=== PATIENT | male | born 1950 | race Caucasian/White ===

== ENCOUNTER → 2018-05-13 08:13 | Outpatient (CLI) | payer MEDICARE, MEDICAID, SELFPAY ==
--- NOTE | 2018-05-13 | DI.US.S_ITS ---
PROCEDURE: US ABD AORTA ANEURYSM SCREEN INDICATIONS: ABDOMINAL AORTIC ANEURYSM SCREENING TECHNIQUE: Real time scanning was performed of the aorta and iliac arteries, with image documentation. COMPARISON: None. FINDINGS: Aorta: Proximal aortic diameter measures 2.7 cm. Mid-aorta measures 2.3 cm. Distal aortic diameter is 1.9 cm. Iliac arteries: Right common iliac artery measures 1.2 cm. Left common iliac artery measures 1.2 cm. IMPRESSION: No abdominal aortic or proximal common iliac artery aneurysm. Dictated by: Billy Ballard [facility] Interpreted: Lanette Musa MD on 05/13/2018 at 9:53 Approved by: Lanette Musa MD, PhD on 05/13/2018 at 13:21
== END ==
PROVIDERS: PCP Internal Medicine; Visit Provider Internal Medicine
DX: Z13.6 Encounter for screening for cardiovascular disorders (principal)
CPT/HCPCS: 76706

== ENCOUNTER → 2019-05-19 09:56 | Outpatient (CLI) | payer MEDICARE, MEDICAID, SELFPAY ==
[2019-05-19 11:04] LABS: Alanine Aminotransferase 33 IU/L (21-72); Albumin 4.2 g/dL (3.5-5.0); Albumin Globulin Ratio 1.2 (1.0-2.8); Alkaline Phosphatase 69 U/L (38-126); Aspartate Aminotransferase 25 IU/L (17-59); BUN Creatinine Ratio 18.9 (6-22); Bilirubin Total 0.6 mg/dL (0.2-1.3); Blood Urea Nitrogen 17 mg/dL (9-20); Calcium 9.6 mg/dL (8.4-10.2); Carbon Dioxide 29 mmol/L (22-32); Chloride 100 mmol/L (98-107); Cholesterol 234 mg/dL (140-199); Estimated Glomerular Filt Rate > 60.0 mL/min (>60); Globulin 3.5 g/dL (1.7-4.1); Glucose 88 mg/dL (80-110); HDL Cholesterol 67 mg/dL (40-60); HEMOLYSIS < 15 (0-50); LDL Cholesterol Calculated 129 mg/dL (<100); Potassium 4.1 mmol/L (3.4-5.1); Sodium 136 mmol/L (137-145); Total Protein 7.7 g/dL (6.3-8.2); Triglycerides 188 mg/dL (35-150)
== END ==
PROVIDERS: PCP Internal Medicine; Visit Provider Internal Medicine
DX: E78.2 Mixed hyperlipidemia (principal); K21.9 Gastro-esophageal reflux disease without esophagitis
CPT/HCPCS: 36415; 80053; 80061

== ENCOUNTER → 2020-10-31 09:37 | Outpatient (CLI) | payer MEDICARE, MEDICAID, SELFPAY ==
[2020-10-31 10:23] LABS: Add Manual Diff / Slide Review NO; Basophils Absolute Auto 0 /uL (0-100); Basophils Percent Auto 0.4 % (0-2); Eosinophils Absolute Auto 100 /uL (0-450); Eosinophils Percent Auto 2.2 % (2-4); Hematocrit 41.6 % (41-53); Hemoglobin 14.7 g/dL (13.5-17.5); Lymphocytes Absolute Auto 1600 /uL (1100-4500); Lymphocytes Percent Auto 28.9 % (25-40); Mean Corpuscular HGB Conc 35.3 % (30-36); Mean Corpuscular Hemoglobin 34.2 PG (26-34); Mean Corpuscular Volume 96.8 fL (80-100); Monocytes Absolute Auto 600 /uL (0-900); Monocytes Percent Auto 11.7 % (3-14); Neutrophils Absolute Auto 3100 /uL (1500-7000); Neutrophils Percent Auto 56.8 % (50-75); Platelet Count 293 X10^3/uL (150-400); Red Cell Distribution Width 12.9 % (11.6-14.8); White Blood Cell Count 5.4 X10^3/uL (4.5-11.0)
[2020-10-31 10:55] LABS: Alanine Aminotransferase 34 IU/L (<50); Albumin Globulin Ratio 1.3 (1.0-2.8); Alkaline Phosphatase 56 U/L (38-126); Aspartate Aminotransferase 28 IU/L (17-59); BUN Creatinine Ratio 14.8 (6-22); Bilirubin Total 0.5 mg/dL (0.2-1.3); Blood Urea Nitrogen 13 mg/dL (9-20); Calcium 9.2 mg/dL (8.4-10.2); Carbon Dioxide 29 mmol/L (22-32); Chloride 101 mmol/L (98-107); Cholesterol 202 mg/dL (140-199); Estimated Glomerular Filt Rate > 60.0 mL/min (>60); Globulin 3.2 g/dL (1.7-4.1); Glucose 104 mg/dL (80-110); HDL Cholesterol 65 mg/dL (40-60); HEMOLYSIS < 15 (0-50); LDL Cholesterol Calculated 108 mg/dL (<100); Potassium 4.4 mmol/L (3.4-5.1); Sodium 135 mmol/L (137-145); Total Protein 7.2 g/dL (6.3-8.2); Triglycerides 143 mg/dL (35-150)
[2020-10-31 11:24] LABS: Prostate Specific Antigen Scrn 1.01 ng/mL (0.1-4.0)
== END ==
PROVIDERS: PCP Internal Medicine; Referring Provider Internal Medicine; Visit Provider Internal Medicine
DX: Z00.00 Encounter for general adult medical examination without abnormal findings (principal); E78.2 Mixed hyperlipidemia; Z12.5 Encounter for screening for malignant neoplasm of prostate; K21.9 Gastro-esophageal reflux disease without esophagitis
CPT/HCPCS: 36415; 80053; 80061; 85025; G0103

== ENCOUNTER → 2022-01-11 06:31 | Outpatient (CLI) | payer MEDICARE, MEDICAID, SELFPAY ==
--- NOTE | 2022-01-11 06:35 | DI.ECHO.S_ITS ---
[place] [facility]---------+ [facility] +---------+ : : [address] : : : : [id number] : : : : Phone: [phone]+ Echocardiogram Report + + :Name: AYUSH NIELSEN Study Date: 01/11/2022 Height: 67 in : :[facility] ReadingLocation: Weight: 175 lb : : Gender: Male BSA: 1.9 m2 : :: 1950 Age: 71 yrs BP: 137/94 mmHg: :Reason For Study: Murmur : :Ordering Physician: ZAHIRA, : :CONCHA Performed By: Anuj Bella : :Referring: CONCHA RODRIGES : + + Interpretation Summary 1) Normal left ventricular thickness, size, and systolic function (EF 55-60%). 2) There are no obvious focal wall motion abnormalities noted but poor endocardial definition reduces the sensitivity for the detection of such. 3) Normal right ventricular size and function. 4) No significant valvular abnormalities. 5) Compared to the Echo done 12/10/2016, no significant change. Procedure: A two-dimensional transthoracic echocardiogram with color flow and Doppler was performed. The study quality was technically adequate. Comparison is made with the echocardiogram of 12/10/2016. Left Ventricle: The left ventricle is normal in size and wall thickness. Left ventricular systolic function is normal. The ejection fraction is estimated to be 55-60%. There are no obvious focal wall motion abnormalities noted but poor endocardial definition reduces the sensitivity for the detection of such. Diastolic parameters suggest probable normal left ventricular diastolic function and normal filling pressures. Right Ventricle: The right ventricle is normal in size and function. Atria: Both atria are normal in size. The interatrial septum grossly appears intact with no obvious evidence for an atrial septal defect. Mitral Valve: The mitral valve is normal in structure and function. There is trace mitral regurgitation. Aortic Valve: The aortic valve is normal in structure and function. There is no aortic valve stenosis. There is trace aortic regurgitation. Tricuspid Valve: The tricuspid valve is normal in structure and function. There is mild tricuspid regurgitation. The right ventricular systolic pressure is estimated to be at least 30 mmHg based on an estimated right atrial pressure of 3 mm Hg. Pulmonic Valve: The pulmonic valve is normal in structure and function. There is mild pulmonic regurgitation. Great Vessels: The aortic root is normal size. The dimensions of the ascending aorta are normal. The IVC is of normal diameter and collapses greater than 50% with a sniff. This suggests a low right atrial pressure of 3 mm Hg. Pericardium/ Pleura There is no pericardial effusion. There is no pleural effusion. MMode/2D Measurements & Calculations LVIDd: 4.8 cm LVOT diam: 2.1 cm LVIDs: 3.0 cm Ao root diam: 2.9 cm FS: 37.5 % asc Aorta Diam: 3.1 cm IVSd: 0.80 cm LVPWd: 1.0 cm LV bates. diameter/BSA (cm/m^2): 2.5 LV sys. diameter/BSA (cm/m^2): 1.6 LA dimension: 2.9 cm RA long axis: 5.0 cm LA A2 area: 12.9 cm2 LA A4 area: 14.1 cm2 LA length (vol): 4.6 cm LA vol: 33.6 ml LA vol index: 17.6 ml/m2 TAPSE_phl: 1.9 cm Doppler Measurements & Calculations Ao V2 max: 81.8 cm/sec LVOT Max Pranav: 77.7 cm/sec Ao V2 mean: 64.0 cm/sec LV V1 max P.4 mmHg Ao max P.0 mmHg LV V1 VTI: 15.1 cm Ao mean P.0 mmHg MARY(I,D): 3.1 cm2 Ao V2 VTI: 16.9 cm MARY(V,D): 3.3 cm2 sev ratio: 0.89 MARY indexed to BSA (cm^2/m^2): 1.6 MV E max pranav: 74.1 cm/sec TR max pranav: 259.0 cm/sec MV A max pranav: 86.1 cm/sec TR max P.8 mmHg MV E/A: 0.86 Med Peak E' Pranav: 6.2 cm/sec E/E' med: 12.0 Lat Peak E' Pranav: 8.3 cm/sec E/E' lat: 8.9 E/e' average: 10.4 MV dec time: 0.24 sec SV(LVOT): 52.3 ml AV VR_phl: 0.95 MARY(VTI)/BSA_phl: 1.6 MV P1/2t-pr_phl: 72.0 msec Reading Physician:12:45 PM
== END ==
PROVIDERS: PCP Student in an Organized Health Care Education/Training Program; Referring Provider Student in an Organized Health Care Education/Training Program; Visit Provider Student in an Organized Health Care Education/Training Program
DX: R01.1 Cardiac murmur, unspecified (principal)
CPT/HCPCS: 93306

== ENCOUNTER 2022-11-05 16:06 | Emergency (ER) | payer MEDICARE, MEDICAID, SELFPAY ==
[2022-11-05] VITALS (10 sets, daily range): BP systolic 127–183; BP diastolic 91–108; PULSE 85–116; RESP 16–25; TEMP 36.6; O2SAT 94–99; BMI 25.0
--- NOTE | 2022-11-05 16:14 | DI.RAD.S_ITS ---
PROCEDURE: XR CHEST 1V INDICATIONS: chest pain TECHNIQUE: One view of the chest was acquired. COMPARISON: [facility], , CHEST 1 VIEW, 04/25/2014, 18:36. FINDINGS: Surgical changes and devices: None. Lungs and pleura: Lungs are clear. No pleural effusions or pneumothorax. Mediastinum: Mediastinal contours appear normal. Heart size is enlarged. Bones and chest wall: No suspicious bony lesions. Overlying soft tissues appear unremarkable. IMPRESSION: No acute pulmonary process. Dictated by: Danitza Hirsch M.D. on 11/05/2022 at 16:27 Approved by: aDnitza Hirsch M.D. on 11/05/2022 at 16:27
[2022-11-05 16:28] LABS: Add Manual Diff / Slide Review NO; Basophils Absolute Auto 0 /uL (0-100); Basophils Percent Auto 0.5 % (0-2); Eosinophils Absolute Auto 200 /uL (0-450); Eosinophils Percent Auto 2.3 % (2-4); Hematocrit 46.4 % (41-53); Hemoglobin 16.6 g/dL (13.5-17.5); Lymphocytes Absolute Auto 2600 /uL (1100-4500); Lymphocytes Percent Auto 35.8 % (25-40); Mean Corpuscular HGB Conc 35.8 % (30-36); Mean Corpuscular Hemoglobin 34.1 PG (26-34); Mean Corpuscular Volume 95.1 fL (80-100); Monocytes Absolute Auto 800 /uL (0-900); Neutrophils Absolute Auto 3700 /uL (1500-7000); Neutrophils Percent Auto 50.4 % (50-75); Platelet Count 312 X10^3/uL (150-400); Red Blood Cell Count 4.88 X10^6/uL (4.5-5.9); Red Cell Distribution Width 12.6 % (11.6-14.8); White Blood Cell Count 7.3 X10^3/uL (4.5-11.0)
--- NOTE | 2022-11-05 16:34 | ED.CHESTPAIN ---
HPI - Chest Pain General Chief Complaint: Chest Pain Stated Complaint: SOB, Chest pain, dizzy Time Seen by Provider: 11/05/22 16:23 Source: patient Mode of arrival: Ambulatory History of Present Illness HPI narrative: 72-year-old male. Had some chest discomfort this morning that has resolved. He states he has had issues with his heart beating fast and beating slow. He has been having some shortness of breath and dizziness with this. He can check his heart rate at home with his phone and also a pulse oximeter. Has also had blood pressure instability. He state his heart rate has gone anywhere from the 40s to 80s. States he has had a heart attack in the past but that was ?stress-induced? and that was many years ago. No lower extremity swelling. Some nausea no vomiting. No abdominal pain. Discomfort is not made worse with palpation or movement or breathing. Related Data Home Medications Medication Instructions Recorded Confirmed famotidine 20 mg tablet (Pepcid) mg 11/05/22 Allergies Allergy/AdvReac Type Severity Reaction Status Date / Time No Known Drug Allergies Allergy Verified 11/05/22 16:12 Review of Systems Review of Systems ROS Unobtainable: All systems reviewed & are unremarkable except as noted in HPI and below Patient History Social History Smoking Status: Never smoker Smoking Status: Never smoker alcohol intake frequency: other Substance Use Type: does not use Exam Initial Vital Signs Initial Vital Signs: Vital Signs Temperature 98 F 11/05/22 16:11 Pulse Rate 116 H 11/05/22 16:11 Respiratory Rate 18 11/05/22 16:11 Blood Pressure 127/94 H 11/05/22 16:11 Pulse Oximetry 98 11/05/22 16:11 Oxygen Delivery Method Room Air 11/05/22 16:11 Const General: cooperative, comfortable and No ill appearing HENTX Head: normal to inspection and normocephalic Chest Chest: normal inspection of the chest Resp Effort & Inspection: normal respiratory effort Auscultation: clear to auscultation bilaterally Cardio Rate: tachycardic Rhythm: regular rhythm GI Inspection: normal to inspection Skin General: no rashes or lesions noted Neuro General: patient alert, patient awake, patient oriented x3 and moves all extremities Speech: speech normal Extrem General: normal to inspection and capillary refill normal Psych Appearance: grossly normal and well kempt Scores GCS [place] coma scale eye opening: Spontaneous [place] coma scale verbal response: Orientated [place] coma scale motor response: Obey commands [place] coma scale total score: 15 HEART Score Heart Score history: Slightly Suspicious Heart Score EKG: Normal Heart Score Age: > or = 65 years old Heart Score risk factors: > 3 risk factors or hx of atherosclerotic disease Heart Score troponin: < or = to normal limit Heart Score Total: 4 Course Orders Ordered: ED Orders 11/05/22 16:14 XR chest 1V Stat EKG-12 Lead Stat 11/05/22 16:18 BNP [NT-proBNP (BNP-Adult 18+)] Stat Complete Blood Count AUTO DIFF Stat Comprehensive Metabolic Panel Stat D Dimer Stat Lipase Stat Magnesium Stat PTT Partial Thromboplastin Brady Stat Prothrombin Time INR Stat Troponin & CK Cardiac Panel Stat 11/05/22 16:22 Covid-19 + FLU A/B + RSV - PCR Stat 11/05/22 18:15 Troponin I Stat Discontinued Medications Aspirin (Aspirin 81 Mg Chew Tab) 324 mg PO NOW ONE Stop: 11/05/22 16:14 Last Admin: 11/05/22 16:39 Dose: 324 mg Documented By: AT Vital Signs Vital signs: Vital Signs - 8 hr 11/05/22 16:11 11/05/22 16:17 11/05/22 16:30 Temperature 98 F Pulse Rate 116 H 100 H 101 H Respiratory Rate 18 16 17 Blood Pressure 127/94 H Pulse Oximetry 98 99 96 Oxygen Delivery Method Room Air Room Air Room Air 11/05/22 17:00 11/05/22 17:00 11/05/22 17:30 Temperature Pulse Rate 94 H Respiratory Rate 16 Blood Pressure 166/91 H 151/93 H Pulse Oximetry 94 Oxygen Delivery Method Room Air 11/05/22 17:30 11/05/22 18:00 11/05/22 18:00 Temperature Pulse Rate 92 H 90 Respiratory Rate 17 19 Blood Pressure 148/94 H Pulse Oximetry 95 94 Oxygen Delivery Method Room Air 11/05/22 18:30 11/05/22 18:30 Temperature Pulse Rate 87 Respiratory Rate 18 Blood Pressure 152/95 H Pulse Oximetry 94 Oxygen Delivery Method Room Air MDM - Chest Pain Lab Data Attestation: I reviewed the patient's lab results. 11/05/22 16:18 11/05/22 16:18 Labs: Lab Results 11/05/22 11/05/22 11/05/22 Range/Units 16:18 16:18 16:18 WBC 7.3 (4.5-11.0) X10^3/uL RBC 4.88 (4.5-5.9) X10^6/uL Hgb 16.6 (13.5-17.5) g/dL Hct 46.4 (41-53) % MCV 95.1 (80-100) fL MCH 34.1 H (26-34) PG MCHC 35.8 (30-36) % RDW 12.6 (11.6-14.8) % Plt Count 312 (150-400) X10^3/uL Neut % (Auto) 50.4 (50-75) % Lymph % (Auto) 35.8 (25-40) % [place] % (Auto) 11.0 (3-14) % Eos % (Auto) 2.3 (2-4) % Baso % (Auto) 0.5 (0-2) % Neut # (Auto) 3700 (7901-3859) /uL Lymph # (Auto) 2600 (0097-0217) /uL [place] # (Auto) 800 (0-900) /uL Eos # (Auto) 200 (0-450) /uL Baso # (Auto) 0 (0-100) /uL PT 12.3 (10.1-12.7) SECONDS INR 1.1 (0.9-1.3) APTT 33 (26-36) SECONDS D-Dimer 257 (<500) ng/ml Sodium 138 (137-145) mmol/L Potassium 3.6 (3.4-5.1) mmol/L Chloride 104 (98-107) mmol/L Carbon Dioxide 25 (22-32) mmol/L BUN 21 H (9-20) mg/dL Creatinine 1.08 (0.66-1.25) mg/dL Estimated GFR > 60 (>60) mL/min BUN/Creatinine Ratio 19.4 (6-22) Glucose 106 (80-110) mg/dL Calcium 9.2 (8.4-10.2) mg/dL Magnesium 2.0 (1.6-2.3) mg/dL Total Bilirubin 0.6 (0.2-1.3) mg/dL AST 33 (17-59) IU/L ALT 36 (<50) IU/L Alkaline Phosphatase 73 (38-126) U/L Total Creatine Kinase 50 L (55-170) U/L CK-MB (CK-2) TNP CK-MB (CK-2) Rel Index TNP Troponin I < 0.012 (0.01-0.034) ng/mL NT-Pro-B Natriuret Pep 44 (<125) pg/mL Total Protein 8.7 H (6.3-8.2) g/dL Albumin 4.6 (3.5-5.0) g/dL Globulin 4.1 (1.7-4.1) g/dL Albumin/Globulin Ratio 1.1 (1.0-2.8) Lipase 227 (23-300) U/L SARS-CoV-2 (PCR) (Negative) Influenza A (RT-PCR) (NEGATIVE) Influenza B (RT-PCR) (NEGATIVE) RSV (PCR) (Negative) 11/05/22 11/05/22 Range/Units 16:22 18:15 WBC (4.5-11.0) X10^3/uL RBC (4.5-5.9) X10^6/uL Hgb (13.5-17.5) g/dL Hct (41-53) % MCV (80-100) fL MCH (26-34) PG MCHC (30-36) % RDW (11.6-14.8) % Plt Count (150-400) X10^3/uL Neut % (Auto) (50-75) % Lymph % (Auto) (25-40) % [place] % (Auto) (3-14) % Eos % (Auto) (2-4) % Baso % (Auto) (0-2) % Neut # (Auto) (2085-1908) /uL Lymph # (Auto) (0278-8309) /uL [place] # (Auto) (0-900) /uL Eos # (Auto) (0-450) /uL Baso # (Auto) (0-100) /uL PT (10.1-12.7) SECONDS INR (0.9-1.3) APTT (26-36) SECONDS D-Dimer (<500) ng/ml Sodium (137-145) mmol/L Potassium (3.4-5.1) mmol/L Chloride (98-107) mmol/L Carbon Dioxide (22-32) mmol/L BUN (9-20) mg/dL Creatinine (0.66-1.25) mg/dL Estimated GFR (>60) mL/min BUN/Creatinine Ratio (6-22) Glucose (80-110) mg/dL Calcium (8.4-10.2) mg/dL Magnesium (1.6-2.3) mg/dL Total Bilirubin (0.2-1.3) mg/dL AST (17-59) IU/L ALT (<50) IU/L Alkaline Phosphatase (38-126) U/L Total Creatine Kinase (55-170) U/L CK-MB (CK-2) CK-MB (CK-2) Rel Index Troponin I < 0.012 (0.01-0.034) ng/mL NT-Pro-B Natriuret Pep (<125) pg/mL Total Protein (6.3-8.2) g/dL Albumin (3.5-5.0) g/dL Globulin (1.7-4.1) g/dL Albumin/Globulin Ratio (1.0-2.8) Lipase (23-300) U/L SARS-CoV-2 (PCR) Negative (Negative) Influenza A (RT-PCR) Flu a negative (NEGATIVE) Influenza B (RT-PCR) Flu b negative (NEGATIVE) RSV (PCR) Negative (Negative) Imaging Data Chest x-ray: Radiologist's Impression: PROCEDURE:? XR CHEST 1V ? INDICATIONS:? chest pain ? TECHNIQUE:? One view of the chest was acquired.? ? COMPARISON:? [facility], , CHEST 1 VIEW, 04/25/2014, 18:36. ? FINDINGS:? ? Surgical changes and devices:? None.? ? Lungs and pleura:? Lungs are clear.? No pleural effusions or pneumothorax.? ? Mediastinum:? Mediastinal contours appear normal.? Heart size is enlarged.? ? Bones and chest wall:? No suspicious bony lesions.? Overlying soft tissues appear unremarkable.? ? IMPRESSION:? No acute pulmonary process ECG Data Attestation: I personally reviewed and interpreted this ECG as follows: Interpretation: Sinus tachycardia Ventricular rate 101 Left axis deviation Normal QRS Normal QTC No ST T wave changes MDM Narrative Medical decision making narrative: Patient does have a heart score for however that is because he has a known history of cardiovascular disease. His troponins are negative x2. The reason he presented today was more of a bradycardic issue that he has had over the past couple days. He was not bradycardic here in the ER. Was actually tachycardic. His chest x-ray is unremarkable. EKG is unremarkable except for his tachycardia. D-dimer was negative. Low suspicion for pneumonia. Low suspicion for PE. We did discuss the potential that his home monitoring actually is not picking up all of the appropriate beats that he is really not bradycardic however he potentially could be an that he needs a Holter monitor to further identify this. Patient will be discharged home for further testing. He was given return precautions. He expressed understanding and agreement. Discharge Plan Departure Patient Disposition: Home Clinical Impression: Palpitations Instructions: DI for Arrhythmias Activity Restrictions/Additional Instructions: I recommend that you continue to take all of your medications as directed. Keep all of your scheduled medical appointments and discuss the indications for a Holter monitor with your primary doctor. Return to the emergency department for any new or worsening symptoms. Prescriptions: No Action famotidine [Pepcid] 20 mg Tablet Referrals: Jamaica Ponce PA-C [Primary Care Provider] - Stand Alone Forms: Patient Portal/API
[2022-11-05 16:35] LABS: INR 1.1 (0.9-1.3); Prothrombin Time 12.3 SECONDS (10.1-12.7)
[2022-11-05 16:37] LABS: D Dimer 257 ng/ml (<500)
[2022-11-05 16:38] LABS: PTT Partial Thromboplastin Tim 33 SECONDS (26-36)
[2022-11-05 16:39] LABS: Alanine Aminotransferase 36 IU/L (<50); Albumin 4.6 g/dL (3.5-5.0); Albumin Globulin Ratio 1.1 (1.0-2.8); Alkaline Phosphatase 73 U/L (38-126); Aspartate Aminotransferase 33 IU/L (17-59); BUN Creatinine Ratio 19.4 (6-22); Bilirubin Total 0.6 mg/dL (0.2-1.3); Blood Urea Nitrogen 21 mg/dL (9-20); Calcium 9.2 mg/dL (8.4-10.2); Carbon Dioxide 25 mmol/L (22-32); Chloride 104 mmol/L (98-107); Creatine Kinase 50 U/L (55-170); Estimated Glomerular Filt Rate > 60 mL/min (>60); Globulin 4.1 g/dL (1.7-4.1); Glucose 106 mg/dL (80-110); HEMOLYSIS < 15 (0-50); Lipase 227 U/L (23-300); Potassium 3.6 mmol/L (3.4-5.1); Sodium 138 mmol/L (137-145); Total Protein 8.7 g/dL (6.3-8.2)
[2022-11-05] MEDS: ASPIRIN 81 MG CHEW TAB 324 MG PO (16:39)
[2022-11-05 16:51] LABS: NT-proBNP (BNP-Adult 18+) 44 pg/mL (<125); Troponin I < 0.012 ng/mL (0.01-0.034)
[2022-11-05 17:13] LABS: Influenza A - CEPHEID Flu A NEGATIVE (NEGATIVE); Influenza B - CEPHEID Flu B NEGATIVE (NEGATIVE); Respiratory Syncytial Virus Negative (Negative)
[2022-11-05 17:25] LABS: COVID-19 CEPHEID 4-PLEX PCR Negative (Negative)
[2022-11-05 18:43] LABS: Troponin I < 0.012 ng/mL (0.01-0.034)
--- NOTE | 2022-11-05 19:10 | PC.NURSE ---
Last blood pressure trending upwards. Patient denies chest pain or SOB. Dr Cross aware no additional orders.
== END 2022-11-05 19:18 | disposition home or self-care (01) ==
PROVIDERS: Emergency Provider Emergency Medicine; PCP Student in an Organized Health Care Education/Training Program
DX: R07.9 Chest pain, unspecified (principal); R00.0 Tachycardia, unspecified; R00.2 Palpitations
CPT/HCPCS: 0241U; 36415; 71045; 80053; 82550; 83690; 83735; 83880; 84484; 85025; 85379; 85610; 85730; 93005; 93010; 99284

== ENCOUNTER → 2022-12-06 06:53 | Outpatient (CLI) | payer MEDICARE, MEDICAID, SELFPAY ==
--- NOTE | 2022-12-06 | DI.ECHO.S_ITS ---
[place] [facility]---------+ [facility] +---------+ : : [address] : : : : [id number] : : : : Phone: [phone]+ Echocardiogram Report + + :Name: AYUSH NIELSEN Study Date: 12/06/2022 Height: 67 in : :[facility] ReadingLocation: Weight: 165 lb : : Gender: Male BSA: 1.9 m2 : :: 1950 Age: 72 yrs BP: 136/89 mmHg: :Reason For Study: CARDIAC MURMUR : :Ordering Physician: ZAHIRA, : :CONCHA Performed By: Simi Renteria : :Referring: CONCHA RODRIGES : + + Interpretation Summary Normal sinus rhythm. Normal LV size and wall thickness. Normal wall motion and LV systolic function. Ejection fraction is 55-60%. Normal chamber sizes. No significant valvular abnormalities. Compared to prior study 01/10/2022 no changes have occurred. Procedure: A two-dimensional transthoracic echocardiogram with color flow and Doppler was performed. The study quality was technically adequate. Comparison is made with the echocardiogram of 01/11/2022. The patient was in sinus rhythm with heart rates between 69-84 bpm during the exam. Left Ventricle: The left ventricle is normal in size and wall thickness. The ejection fraction is estimated to be 55-60%. Right Ventricle: The right ventricle is normal in size and function. Atria: The left atrial size is normal. Right atrial size is normal. There is no Doppler evidence for an interatrial shunt. Mitral Valve: The mitral valve is normal in structure and function. There is no mitral regurgitation noted. Aortic Valve: The aortic valve is trileaflet. The aortic valve opens well. There is no aortic valve stenosis. No aortic regurgitation is present. Tricuspid Valve: The tricuspid valve is normal in structure and function. There is a trace or physiologic amount of tricuspid regurgitation. Pulmonic Valve: The pulmonic valve leaflets are thin and pliable; valve motion is normal. There is no pulmonic valvular regurgitation. Great Vessels: The aortic root is normal size. The ascending aorta could not be visualized. The IVC is of normal diameter and collapses greater than 50% with a sniff. This suggests a low right atrial pressure of 3 mm Hg. Pericardium/ Pleura There is no pericardial effusion. There is no pleural effusion. MMode/2D Measurements & Calculations LVIDd: 4.8 cm LVOT diam: 2.2 cm LVIDs: 3.3 cm Ao root diam: 2.9 cm FS: 31.2 % Ao Arch Diam (Prox Trans): 2.7 cm EPSS: 1.2 cm IVSd: 0.50 cm LVPWd: 0.70 cm LV bates. diameter/BSA (cm/m^2): 2.6 LV sys. diameter/BSA (cm/m^2): 1.8 LA A2 area: 14.5 cm2 RA long axis: 4.6 cm LA A4 area: 12.6 cm2 RA area: 12.5 cm2 LA length (vol): 5.1 cm RA vol: 28.9 ml LA vol: 30.5 ml RA : 15.5 ml/m2 LA vol index: 16.4 ml/m2 IVC diam: 1.5 cm RVD1 (basal): 3.3 cm RVD2 (mid): 2.6 cm TAPSE: 1.6 cm Doppler Measurements & Calculations Ao V2 max: 102.1 cm/sec LVOT Max Pranav: 74.1 cm/sec Ao V2 mean: 75.1 cm/sec LV V1 max P.2 mmHg Ao max P.2 mmHg LV V1 VTI: 14.6 cm Ao mean P.4 mmHg MARY(I,D): 2.5 cm2 Ao V2 VTI: 22.3 cm MARY(V,D): 2.7 cm2 sev ratio: 0.66 MARY indexed to BSA (cm^2/m^2): 1.3 MV E max pranav: 66.2 cm/sec PA V2 max: 128.5 cm/sec MV A max pranav: 65.8 cm/sec PA V2 mean: 95.4 cm/sec MV E/A: 1.0 PA mean P.9 mmHg Med Peak E' Pranav: 5.8 cm/sec PA pr(Accel): 34.5 mmHg E/E' med: 11.5 Lat Peak E' Pranav: 8.5 cm/sec E/E' lat: 7.8 E/e' average: 9.6 MV dec time: 0.31 sec SVOLIVER): 55.2 ml Electronically signed by: Lakesha Salamanca M.D. on Reading Physician:12/06/2022 04:55 PM
--- NOTE | 2022-12-06 | DI.US.S_ITS ---
PROCEDURE: US ABD AORTA ANEURYSM SCREEN INDICATIONS: Cardiac murmur, screening for cardiovascular disord TECHNIQUE: Real time scanning was performed of the aorta and iliac arteries, with image documentation. COMPARISON: [facility], ABD AORTA ANEURYSM SCREEN, 05/13/2018, 8:58. FINDINGS: Aorta: The proximal aorta is not well seen, secondary to overlying bowel gas., yet it appears to measure 1.6 cm on this study. Mid-aorta measures 2.1 cm. Distal aortic diameter is 1.8 cm. Iliac arteries: Right common iliac artery measures 1.2 cm. Left common iliac artery measures 1.3 cm. IMPRESSION: Negative for aneurysm. Dictated by: Cisco Gatica M.D. on 12/06/2022 at 10:01 Approved by: Cisco Gatica M.D. on 12/06/2022 at 10:01
== END ==
PROVIDERS: PCP Student in an Organized Health Care Education/Training Program; Referring Provider Student in an Organized Health Care Education/Training Program; Visit Provider Student in an Organized Health Care Education/Training Program
DX: R01.1 Cardiac murmur, unspecified (principal); Z13.6 Encounter for screening for cardiovascular disorders
CPT/HCPCS: 76706; 93306